=== PATIENT | female | born 1990 | race Caucasian/White ===

== ENCOUNTER 2017-04-24 08:00 | Outpatient (CLI) | payer OTHER | END 2017-04-24 08:01 | disposition home or self-care (01) | LOC: LAB.R 08:00 | PROVIDERS: ATTEND Nurse Practitioner Obstetrics & Gynecology | DX: Z36 Encounter for antenatal screening of mother (principal) | CPT/HCPCS: 87081 ==

== ENCOUNTER 2017-05-24 17:44 | Outpatient (CLI) | payer OTHER ==
[2017-05-24 18:23] VITALS: BP 137/88
== END 2017-05-24 18:37 | disposition home or self-care (01) ==
LOC: WFO 17:44 → FBP 17:45 → WFO 18:37
PROVIDERS: ATTEND Nurse Practitioner Obstetrics & Gynecology
DX: O99.89 Other specified diseases and conditions complicating pregnancy, childbirth and the puerperium (principal); N89.8 Other specified noninflammatory disorders of vagina; Z3A.40 40 weeks gestation of pregnancy
CPT/HCPCS: 99213

== ENCOUNTER 2017-05-28 03:59 | Inpatient (IN) | payer OTHER ==
[2017-05-28] MEDS ORDERED: MINERAL OIL LIGHT 10 ML MC ONE (04:13)
[2017-05-28] MEDS ORDERED: LIDOCAINE 1% 50 ML MDV ONE (04:13)
[2017-05-28] MEDS ORDERED: LACTATED RINGERS 1,000 ML IV ONE (04:13)
[2017-05-28] MEDS ORDERED: SODIUM CHLORIDE FLUSH 0.9% 10 ML SYRINGE IVP ONE (04:14)
[2017-05-28] MEDS ORDERED: OXYTOCIN/LACTATED RINGERS 250 ML IV ONE ×2 (04:14→05:53)
[2017-05-28] MEDS ORDERED: SODIUM CHLORIDE FLUSH 0.9% 10 ML SYRINGE IVP PRN (04:43)
[2017-05-28] MEDS ORDERED: LACTATED RINGERS 1,000 ML IV SCH (05:00)
--- NOTE | 2017-05-28 05:00 | HISTORY & PHYSICAL EXAMINATION ---
Admit History - Instructions [place]/Slash: -Left hand click circles element as positive or present. -Right hand click slashes element as negative or not present. - Visit Reason Visit Reason: Contractions - : 2 Parity: 0 Premature: 0 Ectopic: 0 : 1 Care: positive: [facility] Risk/History: positive: None Complications This : positive: None Smoking Status: Never smoker - Mother's Labs Mother's Blood Type: positive: A Mother's RH: positive: Positive GBS: positive: Group B Step Negative Rubella Status: positive: Immune - Other Maternal History Other Maternal History: HPI: This 26yo @ 41.2wks gestation by L=8wk U/S presents with contractions. Upon evaluation she was noted to be 6/90/0 and vertex. She was admitted to L&D for management. She reports her BOW is intact. Dating Criteria: 1.) LMP 08/12/2016 2.) First ultrasound 10/07/2016 @ 8.2wks - agrees 3.) First exam 10/07/2016 @ 8.6wks -agrees 4.) Serial exams @ 29 - 41 wks -agree OB History: G1: Spontaneous at 4 weeks without complications G2: Current CLIENT SERVICES SPECIALIST History: Menarche 15, Menses 24-26 days; regular STD's none, CLIENT SERVICES SPECIALIST surgeries: none Abnormal paps and treatment: none, last pap 11/2016 WNL PMH: No significant PSHx: Appendectomy 2003 Social Hx: Never smoke, no ETOH or IVDA Family Hx: No significant Meds: PNV Allergies: NKA Early labs: 09/27/2016 Blood type A, Rh pos, antibody neg Hgb 14.4, Hct 12.9, PLT 239 Rubella: immune HIV: neg GC/CT neg 10/21/2016 Hep B: non-reacitve Varicella immune Genetic testing: Quad screen neg x 4 28 week labs: Hgb 12.5 Antibody: neg 1 hour GTT: 94 Tdap 03/17/2017 Influenza 08/12/2016 GBS: Neg Ultrasounds: 10/07/2016: @ 8.2wks c/w LMP 01/02/17: FAS Anterior placenta, no previa, ELIZABETH WNL, FAS WNL except suboptimal visualization of cardiac structures. 01/11/2017: - f/u heart WNL, ELIZABETH WNL Assessment: 26yo @ 41.2wks gestation by L=8.2wk U/S Active labor Desires natural labor Plan: Admit to L&D Encouraged position changes Anticipate spontaneous vaginal delivery Meds/Allgy - Home Medications Home Medications: Ambulatory Orders Medication Instructions Recorded Confirmed No Known Home Medications [No 03/04/14 08/10/14 Known Home Medications] - Allergies Allergies/Adverse Reactions: Allergies Allergy/AdvReac Type Severity Reaction Status Date / Time No Known Drug Allergies Allergy Verified 02/24/14 13:50 Physical - Abdominal Exam Vital Signs: Temp Pulse Resp BP Pulse Ox 36.6 C 74 20 139/65 H 99 05/28/17 04:32 05/28/17 04:16 05/28/17 04:16 05/28/17 04:16 05/28/17 04:16
[2017-05-28 05:18] LABS: BASOPHILS # (AUTO) 0.1 10^3/uL (0.0-0.1); BASOPHILS % (AUTO) 0.6 %; EOSINOPHILS % (AUTO) 0.1 %; HCT - HEMATOCRIT 37.6 % (37.0-47.0); HGB - HEMOGLOBIN 12.9 g/dL (12.0-16.0); LYMPHOCYTES # (AUTO) 1.4 10^3/uL (1.5-3.5); LYMPHOCYTES % (AUTO) 7.8 %; MEAN CORPUSCULAR HEMOGLOBIN 30.9 pg (27.0-31.0); MEAN CORPUSCULAR HGB CONC 34.3 g/dL (32.0-36.0); MEAN CORPUSCULAR VOLUME 90.1 fL (81.0-99.0); MEAN PLATELET VOLUME 9.9 fL (7.9-10.8); MONOCYTES # (AUTO) 0.7 10^3/uL (0.0-1.0); MONOCYTES % (AUTO) 3.8 %; NEUTROPHILS # (AUTO) 16.1 10^3/uL (1.5-6.6); NEUTROPHILS % (AUTO) 87.7 %; RED BLOOD COUNT 4.18 10^6/uL (4.20-5.40); RED CELL DISTRIBUTION WIDTH 13.2 % (12.0-15.0); UNCORRECTED WHITE BLOOD COUNT 18.4 x10^3/uL; WHITE BLOOD COUNT 18.4 x10^3/uL (4.8-10.8)
[2017-05-28] MEDS ORDERED: WITCH HAZEL/GLYCERIN 1 EACH MED..PAD TOP PRN (05:53)
[2017-05-28] MEDS ORDERED: HYDROCORTISONE/PRAMOXINE 10 GM PR PRN (05:53)
[2017-05-28] MEDS ORDERED: SODIUM CHLORIDE FLUSH 0.9% 10 ML SYRINGE IVP SCH (06:00)
--- NOTE | 2017-05-28 06:01 | DELIVERY NOTE ---
Delivery Note - Labor Labor: positive: Spontaneous - Delivery Method Delivery Method: positive: Spontaneous vaginal delivery - Presentation Presentation: positive: Vertex, MITCHELL - left occiput anterior - Nuchal Cord Nuchal Cord: positive: None - Amniotic Fluid Description Amniotic Fluid Description: positive: Clear - Episiotomy Type Episiotomy Type: positive: None - Laceration Laceration: positive: 1st degree - Suture Suture Type: positive: Vicryl Suture Size: positive: 3-0 - Delivery Outcome Delivery Outcome: positive: Livebirth - Bow: positive: Placed in direct skin contact with mother, Bulb syringe, Stimulated, Warmed, [place] used Bow sex: positive: Male - Cord Cord: positive: 3 vessels - Placenta Placenta: positive: Intact, Spontaneous - Estimated Blood Loss Estimated Blood Loss (in cc): 200 - Post Delivery Events Post Delivery Events: positive: No post delivery events - Delivery Comments (Free Text/Narrative) Delivery Comments (Free Text/Narrative): Labor: This 26yo @ 41.2wks gestation by L= 8wk U/S presented at 0400 on 05/28/2017 in active labor. Cervix was 6/90/0 and vertex. FHR pattern demonstrated Category II pattern with early and late decelerations during the second stage. Normal labor course. AROM occurred at 9cm and was noted to be a moderate amount of clear fluid. Normal SVB of a viable male named Francisco. 's were 8/9 at 1 and 5 min respectively at 0521 on 05/28/2017. The was placed on maternal abdomen, stimulated, dried, and placed skin to skin. The umbilical cord was allowed to stop pulsating after which time it was then doubly clamped and cut by FOB. Cord blood was obtained. Placenta delivered spontaneously and intact at 0527. 3VC. Pitocin was administered via IV for hemostasis. EBL 200mL. Uterine fundus firm and there is no excessive bleeding. The perinuem, vagina, and cervix were inspected and found to have 1st degree midline laceration which was repaired using a 3-[address]-1 needle in standard fashion under sterile conditions. Vaginal repair following exam was done and tissues were well approximated. initiated. Family bonding well. Both mother and baby were left in stable condition.
[2017-05-28] MEDS: IBUPROFEN 800 MG TABLET PO SCH ×3 (07:03→18:09)
[2017-05-28] MEDS: ACETAMINOPHEN 500 MG TABLET PO SCH ×2 (07:11→15:45)
[2017-05-28] MEDS ORDERED: DOCUSATE SODIUM 100 MG CAPSULE PO ONE (12:19)
[2017-05-28] MEDS: DOCUSATE SODIUM 100 MG CAPSULE PO SCH ×2 (12:21→20:53)
[2017-05-29] MEDS: IBUPROFEN 800 MG TABLET PO SCH ×4 (00:01→18:11)
[2017-05-29] MEDS: ACETAMINOPHEN 500 MG TABLET PO SCH ×4 (00:01→22:01)
--- NOTE | 2017-05-29 07:48 | PROVIDER PROGRESS NOTE ---
Subjective - Subjective Subjective: 05/29/2017, 0745, PPD#1 S: Bonding well with baby. improved. Nipples are sore and red but baby mom has a lot of colostrum and baby has been soaking diapers and starting to have transitional stools. Worked closely with Karin yesterday and Cammy last night on getting a good latch. Bleeding decreased and pt states it is like a light menstrual cycle. Perineum sore but pain well controlled with ibuprofen. O: Heart RRR w/o M/G/R, lungs CTAB. Abdomen soft and non-tender with fundus firm at U-1. Bilateral LE's no edema. A: 26yo -->P1 PPD#1 s/p TSVB of viable male at 41.2wks gestation 1st degree laceration P: Continue routine PP care and meds. Plan for discharge home tomorrow. Objective - Vital Signs/Intake & Output Vital Signs: Vital Signs x48h Temp Pulse Resp BP Pulse Ox 05/29/17 03:45 36.6 C 76 16 109/65 100 05/29/17 00:00 36.8 C 87 16 119/71 100 Intake & Output: Intake & Output 05/26/17 05/27/17 05/28/17 05/29/17 23:59 23:59 23:59 23:59 Output Total 300 Balance -300 - Lab Results Fish Bones: 05/28/17 04:40
[2017-05-29] MEDS: DOCUSATE SODIUM 100 MG CAPSULE PO SCH ×2 (08:58→22:00)
[2017-05-30] MEDS: IBUPROFEN 800 MG TABLET PO SCH ×2 (01:56→09:18)
[2017-05-30] MEDS: ACETAMINOPHEN 500 MG TABLET PO SCH (06:12)
[2017-05-30 07:47] VITALS: BP 117/66
--- NOTE | 2017-05-30 08:35 | Discharge Plan ---
Discharge Plan Disposition: Home, Self Care Condition: Good Diet: Regular Activity Restrictions: No Restrictions Shower Restrictions: No Driving Restrictions: No Weight Bearing: Full Weight Additional Instructions or Follow Up instructions: S: Bonding well with baby. without difficulty. Continues to have sore nipples but reports and improvement in the discomfort. Planning to use coconut oil at home and has been rubbing breast milk on her nipples as well. Bleeding is decreased and is light. Perineum is sore but her pain is well controlled with ibuprofen. O: Heart RRR w/o M/G/R, lungs CTAB, abdomen soft and nontender with fundus firm at U-2. Perineum intact. Bilateral LE's no edema. A: 26yo -->P1 PPD#2 s/p TSVB of viable male infant P: Discharge home today on PP day #2. Reviewed pp self care and warning signs. 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 Baby has f/u appt with [facility] pediatricians on . Rx send to preferred pharmacy for ibuprofen 800mg 1 tab PO q 8 hrs PRN pain #60 with 1 refill, and colace 100mg sig 1 tab PO PRN constipation #60 with 1 refill. Pt verbalized understanding and agrees to above plan. Denies further questions or concerns today. Return in 2 and 6 weeks to see Noe Carter CNM, or sooner PRN. No Smoking: If you smoke, Please STOP! Call for help. Follow-up with: Lucila Sanchez CNM, RAUL [Provider Admit Priv/Credential] -
[2017-05-30] MEDS: DOCUSATE SODIUM 100 MG CAPSULE PO SCH (09:18)
--- NOTE | 2017-05-30 10:12 | Labor Flowsheet ---
Labor Flowsheet Datetime Report Generated by CPN: 05/30/2017 10:12 Datetime: 05/30/2017 07:36 VITAL SIGNS NBP Sys/Yamileth/Mean (mmHg): 117 : 66 : 78 Pulse: 80 Datetime: 05/29/2017 00:00 Temperature (F): 93.7 Temperature (C): 34.3 Temperature (C): 34.3 Datetime: 05/28/2017 05:59 SpO2 (%): 100 Datetime: 05/28/2017 05:15 UTERINE ACTIVITY Monitor Mode: External Frequency (min): 1-3 Quality: Strong Duration (sec): 60-120 Pattern: Normal: <= 5 Contractions in 10 Minutes Resting Tone (Palpate): Relaxed ASSESSMENT A Monitor Mode: External US FHR Baseline Rate : 120 Variability: Moderate 6-25 bpm Accelerations: 15X15 Decelerations: Variable Category: Category II Oxygen Amount (LPM): 10 Oxygen Method: Non-Rebreather Datetime: 05/28/2017 05:12 Actions for Decelerations: Oxygen Applied PATIENT CARE IV/Blood Work: IV Bolus Started Datetime: 05/28/2017 05:07 TEACHING Instructional Method: Verbal Labor/Induction: Pushing Methods STAGE 2 Pushing: Coached on Pushing; Urge to Push; Involuntary Pushing Pushing Position: Pushing with Contractions; Pushing Lithotomy Pushing Progress: Descent with Pushing; Perineal Bulging Datetime: 05/28/2017 05:01 Patient Position/Activity: Left Tilt Datetime: 05/28/2017 05:00 PAIN Pain Scale: 10 Pain Presence: Intermittent Pain Type: Cramping; Contraction Pain Relief Measures: Comfort Measures Pain Coping: Declines Medication or Epidural VAGINAL EXAM Dilatation (cm): 9.0 Effacement (%): 100 Station: 1 Exam by: Braulio, RN Datetime: 05/28/2017 04:56 Membrane Status: Ruptured Membranes Rupture Method: Spontaneous Amniotic Fluid Color: Clear Amniotic Fluid Amount: Moderate Datetime: 05/28/2017 04:15 Pain Location: Abdomen Datetime: 05/28/2017 04:10 COMMUNICATION Communication: Provider at Bedside Provider Notified (Name): Rupali Sanchez CNM
--- NOTE | 2017-05-30 10:38 | DISCHARGE SUMMARY ---
DATE OF ADMISSION: 05/28/2017 DATE OF DISCHARGE: 05/30/2017 DIAGNOSIS ON ADMISSION: 1. A 26-year-old G2, P0-0-1-0 with a 41.2 week intrauterine . 2. Active labor. DIAGNOSES ON DISCHARGE: 1. A 26-year-old G2, P1-0-1-1 status post spontaneous vaginal delivery on 05/28/2017. 2. Normal recovery. BRIEF HISTORY: She is a patient of [facility] who presented on 05/28/2017 with compl aints of contractions. She was found to be in active labor. Her cervix was 6, 90%, 0 station and vert ex. She was admitted to labor and delivery for management. She spontaneously delivered a viable male infant named Francisco on 05/28/2017 at 0521. Apgars were 8 and 9 at one and 5 minutes, respectively. He weighed 8 pounds 0 ounces. Estimated blood loss was 200 mL. She was found to have a first-degree m idline laceration which was repaired under sterile conditions in a standard fashion. She has been doing well in her course. She is ambulating and tolerating a regular diet. Alexandrea webb is urinating without difficulty, and her lochia is normal. Her pain is well controlled with oral me dications. She will be discharged home today on day #2 with prescriptions for ibuprofen an d Colace. She [facility] [place] in 2 weeks. She has been given precautions to call if she has any worsening fevers, chills, abdominal pain, increased bleedin g or foul-smelling vaginal lochia. JOB #: [id number] EXT JOB #:[id number]
== END 2017-05-30 10:00 | disposition home or self-care (01) | DRG 775 ==
LOC: FBP 03:59
PROVIDERS: ADMIT Nurse Practitioner Obstetrics & Gynecology; ATTEND Nurse Practitioner Obstetrics & Gynecology
PROC: 10E0XZZ Delivery of Products of Conception, External Approach (ICD-10-PCS; principal; 2017-05-28)
PROC: 0HQ9XZZ Repair Perineum Skin, External Approach (ICD-10-PCS; 2017-05-28)
PROC: 10907ZC Drainage of Amniotic Fluid, Therapeutic from Products of Conception, Via Natural or Artificial Opening (ICD-10-PCS; 2017-05-28)
DX: O48.0 Post-term pregnancy (principal); O70.0 First degree perineal laceration during delivery; Z3A.41 41 weeks gestation of pregnancy; Z37.0 Single live birth
CPT/HCPCS: 85025; 99213

== ENCOUNTER 2018-02-24 08:38 | Outpatient (CLI) | payer OTHER ==
--- NOTE | 2018-02-25 22:03 | MRI Report ---
EXAM: LEFT MIDFOOT AND HINDFOOT MRI WITHOUT CONTRAST EXAM DATE: 02/24/2018 09:35 AM. CLINICAL HISTORY: Reinjured left foot on 02/09/2018. Previous partial-thickness plantar fascial tear. COMPARISON: Left hindfoot MRI from 07/04/2016. TECHNIQUE: Multiplanar, multisequence T1-weighted and fluid-sensitive sequences of the midfoot and hi ndfoot without contrast. Other: None. FINDINGS: Bones and articular cartilage: Small plantar calcaneal enthesophyte. No acute fracture or bone lesion s. Articular cartilage is within normal limits. Ligaments: The visualized intertarsal, intermetatarsal, and tarsometatarsal ligaments are intact. Thi s includes the Lisfranc ligament. The visualized collateral ligaments are intact. The tibiofibular, t alofibular, calcaneofibular, deltoid, and spring ligaments are intact. Tendons: The extensor, peroneal, flexor, and Achilles tendons are intact. Musculature: No edema or fatty atrophy. Other: No effusions. The sinus tarsi and tarsal tunnel are unremarkable. There is a tiny 6 x 4 x 1 mm low-grade partial tear at the proximal end of the plantar fascia. No plantar fascial thickening. Mil d subcutaneous edema at the plantar aspect of the heel. IMPRESSION: 1. Tiny 4 x 6 x 1 mm low-grade partial tear at the proximal end of the plantar fascia. Mild subcutane ous edema at the plantar aspect of the heel. Small plantar calcaneal enthesophyte. RADIA MUSCULOSKELETAL RADIOLOGY SECTION Referring Provider Line: [phone] SITE ID: [id number]
== END 2018-02-24 08:39 | disposition home or self-care (01) ==
LOC: DI 08:38
PROVIDERS: ATTEND Podiatrist
DX: S96.812A Strain of other specified muscles and tendons at ankle and foot level, left foot, initial encounter (principal); M25.775 Osteophyte, left foot

== ENCOUNTER 2023-11-30 07:54 | Outpatient (CLI) | payer OTHER ==
--- NOTE | 2023-11-30 14:54 | Ultrasound Report ---
PROCEDURE: OB Anatomy Scan INDICATIONS: SUPERVISION OF OUTSIDE/PRIOR DATING DATA: Last menstrual period (LMP): 07/06/2023. LMP-based estimated date of delivery (KENDRA): 04/11/2024. First dating scan (date and location): 11/30/2023. Estimated date of delivery (KENDRA) from first dating scan: 04/11/2024. The below data below was generated using the clinical KENDRA of 04/11/2024 TECHNIQUE: Ultrasound of the gravid uterus was performed and recorded. COMPARISON: None. FINDINGS: General: A single live intrauterine gestation is present. Presentation: Variable Placenta: Placental position is posterior without previa. Amniotic fluid index: 11.7 cm, 18.6 percentile for gestational age. heart rate: 150 beats per minute. Maternal cervical canal: 4.1 cm long; normal length is 2.5 cm or more. biometrics: Biparietal diameter: 4. Centimeter, 20 week 5 day, 35 percentile Head circumference: 11.8 cm, 20 week 3 day, 17.9 percentile Abdominal circumference: 16.2 cm, 21 week 2 day, 32.7 percentile Femur length: 3.8 cm, 22 week 2 day, 44.2 percentile Estimated gestational age by working dates: 21 week 0 day Composite gestational age by current ultrasound: 21 week 0 day Estimated weight and percentile: 433 g, 74.9 percentile Measurement variability in biometric dating: +/- 10 days from 12-20 weeks gestation, +/- 2 weeks from 20-30 weeks gestation, +/- 3 weeks at 30 weeks gestation or more. Anatomic survey: Neuro: Ventricles are non-dilated at less than 10 mm. Cisterna magna is normal at 3-11 mm. Cerebel lum is normal in size and morphology. Nuchal skin fold: Normal at less than 6 mm between 14-20 weeks gestational age. Face: Nose and lips, facial profile are normal. Spine: No evidence for spina bifida. Heart: 4-chambered heart is present, with normal ventricular outflow tracts. Diaphragm: Diaphragm is intact. Stomach: Left-sided stomach is present. Kidneys: No hydronephrosis. Normal is less than 5 mm in 2nd trimester, less than 7 mm in 3rd trimester. Cord: 3-vessel cord has orthotopic insertion. Bladder: Normal in size. Extremities: All 4 extremities identified. Other: Not applicable. IMPRESSION: Single live intrauterine consistent with 21 week 0 day gestation by current ultrasound Unremarkable anatomic survey Reviewed by: Juancarlos Gonsalez MD on 11/30/2023 1:53 PM [facility] Approved by: Juancarlos Gonsalez MD on 11/30/2023 1:53 PM [facility] Station ID: [id number]
== END 2023-11-30 07:55 | disposition home or self-care (01) ==
LOC: DI 07:54
PROVIDERS: ATTEND Nurse Practitioner Obstetrics & Gynecology
DX: Z36.89 Encounter for other specified antenatal screening (principal); Z34.02 Encounter for supervision of normal first pregnancy, second trimester

== ENCOUNTER 2024-01-15 14:36 | Outpatient (CLI) | payer OTHER ==
[2024-01-15 15:57] LABS: HCT - HEMATOCRIT 37.1 % (37.0-47.0); MEAN CORPUSCULAR HEMOGLOBIN 29.9 pg (27.0-31.0); MEAN CORPUSCULAR HGB CONC 32.3 g/dL (32.0-36.0); MEAN CORPUSCULAR VOLUME 92.3 fL (81.0-99.0); MEAN PLATELET VOLUME 10.4 fL (7.9-10.8); RED BLOOD COUNT 4.02 10^6/uL (4.20-5.40); RED CELL DISTRIBUTION WIDTH 12.8 % (12.0-15.0); WHITE BLOOD COUNT 10.8 x10^3/uL (4.8-10.8)
[2024-01-16 03:10] LABS: HBsAG SCREEN Negative (Negative)
== END 2024-01-15 14:37 | disposition home or self-care (01) ==
LOC: LAB 14:36
PROVIDERS: ATTEND Nurse Practitioner Obstetrics & Gynecology
DX: Z36.9 Encounter for antenatal screening, unspecified (principal)
CPT/HCPCS: 36415; 82950; 85027; 86803; 87340; 87517; 87522

== ENCOUNTER 2024-02-05 13:16 | Outpatient (CLI) | payer OTHER ==
[2024-02-05 13:48] VITALS: BP 116/61
[2024-02-05 13:53] LABS: BASOPHILS % (AUTO) 0.2 %; EOSINOPHILS # (AUTO) 0.1 10^3/uL (0.0-0.7); EOSINOPHILS % (AUTO) 0.8 %; HCT - HEMATOCRIT 35.7 % (37.0-47.0); HGB - HEMOGLOBIN 11.6 g/dL (12.0-16.0); LYMPHOCYTES # (AUTO) 1.7 10^3/uL (1.5-3.5); LYMPHOCYTES % (AUTO) 14.1 %; MEAN CORPUSCULAR HEMOGLOBIN 29.7 pg (27.0-31.0); MEAN CORPUSCULAR HGB CONC 32.5 g/dL (32.0-36.0); MEAN CORPUSCULAR VOLUME 91.3 fL (81.0-99.0); MEAN PLATELET VOLUME 10.5 fL (7.9-10.8); MONOCYTES # (AUTO) 0.7 10^3/uL (0.0-1.0); NEUTROPHILS # (AUTO) 9.3 10^3/uL (1.5-6.6); NEUTROPHILS % (AUTO) 78.1 %; PLT - PLATELET COUNT 189 10^3/uL (130-450); RED BLOOD COUNT 3.91 10^6/uL (4.20-5.40); RED CELL DISTRIBUTION WIDTH 13.2 % (12.0-15.0); WHITE BLOOD COUNT 11.9 x10^3/uL (4.8-10.8)
[2024-02-05 14:10] LABS: CREATININE,URINE 28.5 mg/dL; PROTEIN/CREATININE RATIO,URINE 0.1 (<=0.2)
[2024-02-05 14:32] LABS: ALBUMIN 3.6 g/dL (3.2-5.5); ALBUMIN/GLOBULIN RATIO 1.2 (1.0-2.2); BILIRUBIN,TOTAL 0.3 mg/dL (0.2-1.0); CALCIUM 9.4 mg/dL (8.5-10.3); CREATININE 0.8 mg/dL (0.6-1.3); POTASSIUM 3.9 mmol/L (3.5-4.5); TOTAL PROTEIN 6.5 g/dL (6.4-8.9)
--- NOTE | 2024-02-07 11:27 | PROVIDER PROGRESS NOTE ---
- HPI Chief Complaint: Hypertension/PIH Current : Current EDU 04/11/24 Gestation 30 Weeks and 4 Days 4 Para 2 Vital Signs Temperature 36.9 C 02/05/24 13:29 Heart Rate 90 02/05/24 13:29 Respiratory Rate 16 02/05/24 13:29 Blood Pressure 116/61 02/05/24 13:29 Temperature 36.9 C 02/05/24 13:29 Heart Rate 90 02/05/24 13:29 Respiratory Rate 16 02/05/24 13:29 Blood Pressure 116/61 02/05/24 13:29 O2 Saturation If not protocol: Oxygen Flow, liters/minute - Procedures OB Procedure Performed: NST NST Procedure: NST Procedure Start Date 02/05/24 Start Time 14:00 Stop Time 14:20 Vibroacoustic Stimulation Used No Patient States Movement Yes - Plan Plan: Neetu is a 33yo @ 30.4wks gestation who presents to [facility] with c/o having elevated blood pressures readings on multiple occasions on her home blood pressure cuff. She reports it is an arm cuff that her regularly uses to track his blood pressures. She states what prompted her to evaluate her blood pressure was feelings of dizziness and light headedness that began yesterday. She felt ringing in her ears and like she may faint with the first occurrence happening yesterday. She proceeded to sit down and her systolic blood pressure was 137. She is unable to recall was the diastolic reading was however she does not believe it was above 90. She states this afternoon she felt similarly and she took her blood pressure again and noted her systolic reading was 152. She is again unable to recall what her diastolic reading was. She reports lingering headache and right shoulder pain that started Monday evening that she related to physical activity. She attributed the headache to the radiating shoulder pain. She denies visual disturbances, RUQ or epigastric pain. She denies vaginal bleeding, leakage of fluid or contractions. She reports +FM. She does experience intermittent swelling in her feet bilaterally but does not feel she is any more swollen today than she normally is. She has no history of hypertensive disorders in her previous pregnancies and her blood pressure throughout her current have been within normal limits. She reports she is adequately hydrated and well nourished. She denies urinary symptoms. Reports regular bowel movements. She reports seasonal allergies and has not been taking anything regularly for management. She denies exposure to anyone with recent illness. NST reactive. FHR baseline 150s, moderate variability, + accels, no decels Intermittent contractions appreciated via tocometry that pt is unable to feel. CBC and CMP within normal limits. Urine protein/creatinine ratio 0.1 Serial blood pressure monitoring within normal limits and patient does not have any elevated blood pressure during her visit today. Heart RRR w/o M/G/R, lungs CTAB, abdomen gravid, soft, nontender. Bilateral LE's no edema. Assessment: Dizziness in Headache Seasonal allergies Plan: Pt released home with precautions. Recommended daily allergy medication and reviewed safe options in . Reviewed Pre-E warning s/sx and when to present. Pt has emergency contact information. Encouraged her to bring her home BP cuff with her to her next routine visit to ensure accuracy. Pt feels reassured and was released home with precautions. She verbalized understanding and agrees to above plan. She denies further questions or concerns at this time.
== END 2024-02-05 14:40 | disposition home or self-care (01) ==
LOC: WFO 13:16 → FBP 13:27 → WFO 14:40
PROVIDERS: ATTEND Nurse Practitioner Obstetrics & Gynecology
DX: O99.891 Other specified diseases and conditions complicating pregnancy (principal); R42 Dizziness and giddiness; R51.9 Headache, unspecified; O99.513 Diseases of the respiratory system complicating pregnancy, third trimester; J30.2 Other seasonal allergic rhinitis; Z3A.30 30 weeks gestation of pregnancy
CPT/HCPCS: 36415; 59025; 80053; 82570; 84156; 85025; 99213; 99214

== ENCOUNTER 2024-04-05 08:48 | Inpatient (IN) | payer OTHER ==
[2024-04-05] MEDS ORDERED: TERBUTALINE 1 MG/ML VIAL SUBQ PRN (09:20)
[2024-04-05] MEDS ORDERED: SODIUM CHLORIDE FLUSH 0.9% 10 ML SYRINGE IVP PRN (09:20)
[2024-04-05] MEDS ORDERED: lidocaine 1% 20 ML MDV ID PRN (09:20)
[2024-04-05] MEDS ORDERED: CARBOPROST TROMETHAMINE 250 MCG/ML VIAL IM PRN (09:20)
[2024-04-05] MEDS ORDERED: OXYTOCIN/SODIUM CHLORIDE 500 ML IV PRN (09:20)
[2024-04-05] MEDS ORDERED: METHYLERGONOVINE 0.2 MG/ML VIAL IM PRN (09:20)
[2024-04-05] MEDS ORDERED: OXYTOCIN 10 UNIT/ML VIAL IM PRN (09:20)
[2024-04-05] MEDS ORDERED: miSOPROStoL 200 MCG TABLET PR PRN (09:20)
[2024-04-05] MEDS ORDERED: TRANEXAMIC ACID IN NACL 1,000 MG/100 ML BAG IV PRN (09:20)
--- NOTE | 2024-04-05 09:20 | HISTORY & PHYSICAL EXAMINATION ---
Admit History - Visit Reason Visit Reason: Membranes rupture - : 5 Parity: 3 Premature: 0 Ectopic: 0 : 1 Care: positive: [facility] Risk/History: positive: None Complications This : positive: None Smoking Status: Never smoker - Mother's Labs Mother's Blood Type: positive: A Mother's RH: positive: Positive GBS: positive: Group B Strep Positive Rubella Status: positive: Immune - HPI Diagnosis/Indication for NST: Other - NST Procedure NST Procedure Start Time 14:00 Stop Time 14:20 Meds/Allgy - Home Medications Home Medications: Ambulatory Orders Medication Instructions Recorded Confirmed No Known Home Medications 03/04/14 08/10/14 - Allergies Allergies/Adverse Reactions: Allergies Allergy/AdvReac Type Severity Reaction Status Date / Time No Known Drug Allergies Allergy Verified 02/24/14 13:50 Review of Systems - Constitutional Constitutional: denies: Fatigue, Fever, Chills, Malaise - Eyes Eyes: denies: Pain, Blurred vision - Cardiovascular Cariovascular: denies: Irregular heart rate, Palpitations, Chest pain, Edema - Respiratory Respiratory: denies: Cough, Wheezing, SOB at rest - Gastrointestinal Gastrointestinal: denies: Constipation, Diarrhea, Nausea, Vomiting - Genitourinary Genitourinary: denies: Dysuria - Integumentary Integumentary: denies: Rash, Pruritis - Neurological Neurological: denies: Headache - Psychiatric Psychiatric: denies: Depression, Anxiety - Hematologic/Lymphatic Hematologic/Lymphatic: denies: Anemia - All Other Systems All Other Systems: reports: Reviewed and negative Physical - Abdominal Exam Contraction Frequency (min/apart): intermittent Contraction Intensity: positive: Mild Uterine Resting Tone: positive: Soft - Monitoring Heart Rate Baseline: 140s Strip Review: positive: Category I - Presentation Presentation: positive: Vertex - Vaginal Exam Membranes: positive: Membranes ruptured - Speculum Exam Speculum Exam Performed: positive: Yes Findings: positive: Gross leak, Nitrazine Plan for Labor - Plan For Labor I expect patient to be DC'd or transferred within 96 hours.: Yes Plan for Labor: HPI: This 33yo G5:0313 @ 39.1wks gestation by LMP c/w 8.5wk U/S presents to [facility] with c/o vaginal leakage of fluid that occurred at approximately 0800 this morning. She reports the fluid was clear and she was initially unsure if she was involuntarily urinating or if her water was broken. She presented for evaluation and was noted to have grossly ruptured membranes on sterile speculum examination with positive nitrizine. SVE was deferred. She is noted to be GBS positive and IV antibiotics will be started per protocol prior to SVE secondary to her absence of contractions at present time. She denies vaginal bleeding and reports +FM. She is supported by her Laura today. [facility] the duration of her which has remained uncomplicated. She will be admitted to [facility] for expectant management. Dating criteria: LMP: 07/06/2023-->04/11/2024 Initial U/S @ 8.5wks c/w LMP dating Serial exams - agree OB Hx: G1: SAB G2: 05/28/2017, @ 41.5 wks, 5hr labor, 20 min second stage, 8lb5oz Male, Francisco. [facility] G3: 11/17/2020, @ 38.5wks, 7hr labor, 30 min second stage, 7lb 30z Male, Juan. Other Hospital G4: 08/14/2022, @ 41.0wks, 5hr labor, 20 min second stage, 8lb 0oz Male, Felipe. 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 Stopped drinking alcohol due to . Denies current use of tobacco, marijuana or other recreational drugs. Reports that she is safe in current relationship. Family Hx: Denies family history of congenital anomalies, Cystic Fibrosis or chromosomal abnormalities. Diabetes - Paternal grandfather. Allergies: NKDA Medications: PNV, Probiotics course: A positive, antibody negative Rubella immune, Varicella immune HIV DECLINED, RPR non-reactive Hep B negative, Hep C Non-Reactive N. gonorrhea Declined; Chlamydia Declined Initial U/S & 8.5wks c/w LMP dating Genetic screening - declined FAS WNL. Posterior placenta, no previa. Size c/w dating (EFW 74.9%tile). ELIZABETH WNL. 3VC. Glucola - 112 Tdap - declined GBS POSITIVE Physical Exam: Normocephalic, atraumatic Heart RRR w/o M/G/R Lungs CTAB Abdomen gravid, soft, nontender EFW 3800g FHR baseline 140s, moderate variability, + accels, no decels Contractions palpate mild intermittently with soft resting tone SVE deferred Sterile speculum exam reveals grossly ruptured membranes Nitrizine positive Bilateral LE's trace edema Mood is good. Assessment: 33yo @ 39.1wks gestation by LMP c/w 8.5wk U/S PROM GBS positive FHR Category I Plan: Admit to [facility] for expectant management. Intermittent heart rate auscultation. Initiate ampicillin for GBS prophylaxis per protocol. Encouraged ambulation and position changes. Anticipating NSVB.
[2024-04-05] MEDS ORDERED: SODIUM CHLORIDE FLUSH 0.9% 10 ML SYRINGE IVP SCH (10:00)
[2024-04-05] MEDS: AMPICILLIN 2 GM in SODIUM CHLORIDE 0.9% MINIBAG 100 ML IV ONE (10:58)
[2024-04-05] MEDS: LACTATED RINGERS 1,000 ML IV PRN (10:59)
[2024-04-05 11:16] LABS: BASOPHILS % (AUTO) 0.1 %; EOSINOPHILS # (AUTO) 0.1 10^3/uL (0.0-0.7); EOSINOPHILS % (AUTO) 0.7 %; HCT - HEMATOCRIT 36.3 % (37.0-47.0); HGB - HEMOGLOBIN 11.9 g/dL (12.0-16.0); LYMPHOCYTES # (AUTO) 1.3 10^3/uL (1.5-3.5); LYMPHOCYTES % (AUTO) 13.6 %; MEAN CORPUSCULAR HEMOGLOBIN 29.5 pg (27.0-31.0); MEAN CORPUSCULAR HGB CONC 32.8 g/dL (32.0-36.0); MEAN CORPUSCULAR VOLUME 89.9 fL (81.0-99.0); MEAN PLATELET VOLUME 10.9 fL (7.9-10.8); MONOCYTES # (AUTO) 0.5 10^3/uL (0.0-1.0); MONOCYTES % (AUTO) 5.1 %; NEUTROPHILS # (AUTO) 7.9 10^3/uL (1.5-6.6); PLT - PLATELET COUNT 208 10^3/uL (130-450); RED BLOOD COUNT 4.04 10^6/uL (4.20-5.40); RED CELL DISTRIBUTION WIDTH 14.1 % (12.0-15.0); WHITE BLOOD COUNT 9.8 x10^3/uL (4.8-10.8)
[2024-04-05] MEDS: AMPICILLIN 1 GM in SODIUM CHLORIDE 0.9% MINIBAG 100 ML IV SCH (14:53)
--- NOTE | 2024-04-05 17:16 | PHARMACY PROGRESS NOTE ---
- Best Possible Medication History Admit Date and Time: 04/05/24 0920 Processed by: Pharmacy Medications reviewed in ED?: No Medication History completed: No Secondary Source(s): Physician records, Insurance records As the person ultimately responsible for medication therapy, providers are able to order a medication from an existing home medication list in [facility] via the "Reconcile Routine" prior to Confirmation of that medication by application support engineer. Such practice is discouraged except when the physician, in their clinical judgment, deems that a medical need exists for a medication without regard to previous use.
--- NOTE | 2024-04-06 08:57 | PROVIDER PROGRESS NOTE ---
Labor Progress Note - Monitoring Monitor Mode: positive: External ultrasound Heart Rate Baseline: 130 Heart Rate Variability: positive: Moderate (6-25 bmp) Accelerations: positive: Present, 15x15 Strip Review: positive: Category I - Vaginal Exam Dilation (in cm): 4 Effacement (%): 80 Station: -2 Cervical Position: Posterior, Midposition - Labor Progress Note Labor Progress Note/Additional Text: S: SROM 24 hours ago without onset of labor. GBS positive, prophylaxis initiated. Deferred any augmentation with a preference for expectant management at that of admission and throughout the last 24 hours. She was able to rest through the night with q 4 hour NSTs (reactive). She had increased frequency and intensity of contractions around 0300 but they have since mostly stopped. Feeling overall physically comfortable. Very hesitant to initiate medication induction O: FHR baseline:130, + accelerations, no recurrent or significant decelerations. Overall reassuring tracing. Contractions intermittent, palpate mild, soft resting tone. SVE 4/80/-2, ruptured, clear. Unchanged SVE from yesterday. Afebrile A: This 33yo @ 39+2 wks gestation by LMP c/w 8.5wk U/S presents to [facility] with c/o vaginal leakage of fluid that occurred at approximately 0800 on 04/05/2024. Gross rupture confirmed by speculum exam and nitrazine. 24 hours since SROM. Now, prolonged rupture of membranes increased risk for hemorrhage, chorioamnionitis and distress with prolonged rupture of membranes FHR Category I GBS positive. P: Extended discussion related to increased risks of chorioamnionitis and distress with prolonged rupture of membranes. Continued hesitancy to initiate labor induction. Extended discussion re: reviewed risk vs benefit Initiate pitocin now for induction of labor to initiate at 1mu/min with titration per protocol. Continued GBS prophylaxis Type & Cross 2 units starting pitocin Will notify on-call physician of plan Anticipate . RAUL Yousif, Student Nurse Implementation Consultant Neetu had verbalized agreement to my participation in her care in my student midwifery role.
[2024-04-06] MEDS: OXYTOCIN/SODIUM CHLORIDE 500 ML IV SCH (09:20)
--- NOTE | 2024-04-06 09:26 | PROVIDER PROGRESS NOTE ---
Labor Progress Note - Uterine Monitoring Uterine Monitoring Mode: positive: None in use Contraction Frequency (min/apart): occasional, rare Contraction Intensity: positive: Mild Uterine Resting Tone: positive: Soft - Monitoring Monitor Mode: positive: Doppler/auscultation Heart Rate Baseline: 130s Decelerations: positive: None - Vaginal Exam Dilation (in cm): 3-4 Effacement (%): 80 Station: -2 Cervical Position: Posterior - Labor Progress Note Labor Progress Note/Additional Text: S: Continues to ambulate and has remained active throughout the day in attempt to initiate onset of labor without success. She has intermittently tried nipple stimulation, miles circuit, and lunges in the room. She has also gone for several walks throughout the hallway. She does not feel any contractions at this time. Her Laura is supportive at the bedside. O: SVE 3-4/80/-2, vertex. Grossly ruptured membranes with continued leakage of clear fluid. Afebrile FHR auscultates 130s, no contractions appreciated by patient or upon palpation A: 33yo @ 39.2wks gestation by LMP c/w 8.5wk U/S PROM GBS positive Reassuring heart tones P: Strongly encouraged initiation of pitocin for labor augmentation and pt declines. Reviewed risks of prolonged rupture of membranes including infection, distress, and hemorrhage. Pt continues to decline and requests expectant management x 24 hours. Will initiate q4hr NSTs throughout the night to promote rest per pt request. Continue ampicillin for GBS prophylaxis per protocol. Anticipate .
--- NOTE | 2024-04-06 11:21 | CONSULTATION NOTE ---
Surgery Consult - Admit Date Hospital Admission Date: 04/05/24 - Consult Date Consult Date: 04/06/24 Requesting Provider: RAUL Dias - Home Meds/Allergies Home Medications: Patient History Medication Instructions Recorded Confirmed Pnv No.95/Ferrous Fum/Folic AC 1 tab PO DAILY 04/05/24 04/05/24 [ Tablet] Allergies/Adverse Reactions: Allergies Allergy/AdvReac Type Severity Reaction Status Date / Time No Known Drug Allergies Allergy Verified 02/24/14 13:50 - Vital Signs Vital Signs: Last Vital Signs Temp 98.4 F 04/06/24 03:00 Pulse 80 04/06/24 03:00 Resp 18 04/06/24 03:00 BP 129/74 04/06/24 03:00 Pulse Ox 98 04/06/24 03:00 O2 Flow Rate Intake & Output: Intake & Output 04/03/24 04/04/24 04/05/24 04/06/24 23:59 23:59 23:59 23:59 Intake Total 527.083 201.667 Balance 527.083 201.667 - Lab Results Result Diagrams: 04/05/24 10:50
--- NOTE | 2024-04-06 13:18 | PROVIDER PROGRESS NOTE ---
Labor Progress Note - Uterine Monitoring Uterine Monitoring Mode: positive: External toco Contraction Frequency (min/apart): rare Contraction Intensity: positive: Mild Uterine Resting Tone: positive: Soft - Monitoring Monitor Mode: positive: External ultrasound Heart Rate Baseline: 130 Heart Rate Variability: positive: Moderate (6-25 bmp) Accelerations: positive: Present, 15x15 Decelerations: positive: None Strip Review: positive: Category I - Labor Progress Note Labor Progress Note/Additional Text: Despite strong repeated strong recommendation to titrate pitocin per protocol to initiate contractions she continues to decline increase in pitocin. She has been repeatedly educated by both myself, as well as the corporate staff accountant about the risk of prolonged rupture of membranes to both herself and to her baby.
--- NOTE | 2024-04-06 14:17 | PROVIDER PROGRESS NOTE ---
Labor Progress Note - Uterine Monitoring Uterine Monitoring Mode: positive: External toco Contraction Frequency (min/apart): 5-8 Contraction Intensity: positive: Mild Uterine Resting Tone: positive: Soft - Monitoring Monitor Mode: positive: External ultrasound Heart Rate Baseline: 130 Heart Rate Variability: positive: Moderate (6-25 bmp) Accelerations: positive: Present, 15x15 Decelerations: positive: None Strip Review: positive: Category I - Labor Progress Note Labor Progress Note/Additional Text: S: Feeling occasional contractions. Currently sitting up in bed and states she feels more discomfort with contractions when she is using the peanut ball or sitting on the ball. remains at bedside. Lengthy discussion again with patient regarding my concern for well being secondary to prolonged rupture of membranes and her continued refusal to increase pitocin despite my strong recommendations and repeated education discussions about risks vs benefits. She expressed concern about the cascade of intervention and we reviewed that my recommendation to initiate pitocin is to avoid a more significant intervention such as a delivery secondary to distress and she seemed receptive to this. She also expressed concerns for her ability to cope with contractions with pitocin despite her hx of 3 unmedicated deliveries and we reviewed this extensively. Following our conversation she states she accepts the recommendation to increase pitocin per protocol every 30 minutes until onset of active labor. Her remains at the bedside and was present and apparently listening throughout our conversation. O: FHR baseline 140s, moderate variability, + accels, no decels Contractions palpate mild every 5-8 minutes with soft resting tone SVE deferred Pitocin @ 3mU/mL PROM x 30hrs - febrile A: 33yo @ 39.3wks gestation Prolonged rupture of membranes GBS positive FHR Category I P: Continue ampicillin for GBS prophylaxis. Continue pitocin for augmentation of labor with titration per protocol.
[2024-04-06] MEDS ORDERED: HYDROCORTISONE 1% CREAM 28 GM TUBE PR PRN (18:03)
[2024-04-06] MEDS ORDERED: WITCH HAZEL/GLYCERIN 1 PAD TOP PRN (18:03)
--- NOTE | 2024-04-06 18:24 | DELIVERY NOTE ---
Delivery Note - Labor Labor: positive: Spontaneous - Delivery Method Delivery Method: positive: Spontaneous vaginal delivery - Presentation Presentation: positive: Vertex, [place]CHELL - left occiput anterior - Nuchal Cord Nuchal Cord: positive: Reduced - Anesthetic Anesthetic Type: - Amniotic Fluid Description Amniotic Fluid Description: positive: Clear - Laceration Laceration: positive: 1st degree, Perineal - Delivery Outcome Delivery Outcome: positive: Livebirth - [place]: positive: Placed in direct skin contact with mother, Bulb syringe, Stimulated, [place] used [place] sex: positive: Female - Cord Cord: positive: 3 vessels - Placenta Placenta: positive: Intact - Estimated Blood Loss Estimated Blood Loss (in cc): 50 - Post Delivery Events Post Delivery Events: positive: No post delivery events - Delivery Comments (Free Text/Narrative) Delivery Comments (Free Text/Narrative): This 33 -year-old, @ 39.2wks gestation by LMP c/w 8.5wk U/S. Cervix was 4/80 and Vertex presentation by quirino's. Prolonged, premature rom of membranes, SROM 04/05/2024 @0800. GBS positive, treated x7 doses of ampicillin. Desired expectant management x24 hours before initiated induction. Pitocin intated @0920 but patient agreed to only incremental increases until maximum infusion dose of 6mu/min reached at 15:15. FHR pattern demonstrated primarily category I with intermittent category II. Once onset of regular contractions, labor progressed quickly. Unmedicated labor course. She began pushing (presumed complete) at 1723. : Normal spontaneous vaginal delivery of a viable female on 04/06/2024 @ 1729. Nuchal cord x1, reduced. The was placed on maternal abdomen, stimulated, dried and placed skin to skin. Apgars 8 @ 1 min, and 9 @ 5 minutes. Pitocin administered via IV for hemostasis. The umbilical cord was allowed to stop pulsating at which time it was doubly clamped by delivering provider and cut by donor services team leader. 3VC. Cord blood was obtained. Fundal massage and gently cord traction applied for active management of the third stage, placenta delivered spontaneously and intact @ 1737 time. EBL 50ml. Placenta was WAS NOT sent to pathology. Declined active management of 3rd stage. Uterine massage was performed until uterus was deemed firm. Inspection of the perineum noted a first-degree midline laceration largely in t he area of previous scar tissue. hemostatic. Not repaired. Uterus again massaged and found to be firm. Needle and sponge counts were correct. Fourth stage: Uterine fundus firm and there is no excessive bleeding. Skin to skin initiated. Family bonding well. Both mother and baby are in stable condition. RAUL Yousif, Student Nurse Television Production Assistant
[2024-04-06] MEDS: IBUPROFEN 800 MG TABLET PO SCH (22:38)
[2024-04-06] MEDS: ACETAMINOPHEN 500 MG TABLET PO SCH (22:38)
[2024-04-06] MEDS: DOCUSATE SODIUM 100 MG CAPSULE PO SCH (22:38)
[2024-04-07 08:34] VITALS: O2SAT 97
--- NOTE | 2024-04-07 10:43 | Discharge Plan ---
Discharge Plan Problem Reviewed?: Yes Disposition: Home, Self Care Condition: Good Diet: Regular Activity Restrictions: No Restrictions Shower Restrictions: No Driving Restrictions: No Weight Bearing: Full Weight Instruction Topics: Vaginal, Breastfeed Holds, Self Care No Smoking: If you smoke, Please STOP! Call for help. Follow-up with: Lucila Sanchez CNM, RAUL [Provider Admit Priv/Credential] -
--- NOTE | 2024-04-07 10:48 | DISCHARGE SUMMARY ---
Discharge Summary Admit Date: 04/05/24 Discharge Date: 04/07/24 Discharging Provider: HOWARD Sanchez Primary Care Provider: HOWARD Sanchez Condition at Discharge: Good Discharge Disposition: 01 Home, Self Care - HPI History of Present Illness: Date of Admission 04/05/2024 Date of Discharge 04/07 Diagnosis on admission: 1. 33yo @ 39.1wks gestation by LMP c/w 8.5wk U/S 2. PROM 3. GBS positive 4. FHR Category I Diagnosis on Discharge 1. 33 yo s/p on 04/06/2024, viable female apgars 8&9, PPD #1 2. 3. 1st degree perineal laceration, hemostatic and unrepaired. Brief History: She is a patient of [facility] who presented on 04/05/2024 after SROM. GBS +, adequately treated (x7 total doses ampicillin). Desired expectant management x24 hours prior to initiating induction of labor (IOL). IOL began yesterday (04/06/2024) @ 0920 with pitocin. Once in active labor, she progressed quickly to complete and delivered a viable female infant the evening of 04/06/2024 @ 1724 with apgars of 8&9 @1&5 minutes respectively. Unmedicated (no pain analgesia) thorough labor and delivery course. EBL 50 ml. First degree perineal laceration, hemostatic, not repaired. She has been doing well in her course. She is ambulating and tolerating a regular diet. She is urinating without difficulty and her lochia is normal. Her pain is well controlled without narcotic management. She will be discharged to home today on PPD #1. Encouraged OTC IBU and tylenol prn, pain. She intends to follow up with [facility] in about 10 days by telehealth. She has been given precautions to call if she has any new or worsening sx such as fevers, chills, abdominal pain, increasing bleeding, or foul smelling vaginal lochia. RAUL Yousif, Student Nurse Bilingual Middle School Teacher - ALLERGIES Allergies/Adverse Reactions: Allergies Allergy/AdvReac Type Severity Reaction Status Date / Time No Known Drug Allergies Allergy Verified 02/24/14 13:50 - MEDICATIONS Home Medications: Ambulatory Orders Medication Instructions Recorded Confirmed Pnv No.95/Ferrous Fum/Folic AC 1 tab PO DAILY 04/05/24 04/05/24 [ Tablet] - PHYSICAL EXAM AT DISCHARGE General Appearance: positive: No acute distress Eyes Bilateral: positive: Normal inspection Neck: positive: Nml inspection Respiratory: positive: No respiratory distress Abdomen: positive: Non-tender Extremities: positive: Non-tender Neurologic/Psychiatric: positive: Oriented x3 - LABS Result Diagrams: 04/05/24 10:50 - QUALITY (Female Hip Fx Only) Was patient sent home on osteoporosis medication?: No
[2024-04-07 17:11] VITALS: BP 131/78
--- NOTE | 2024-04-07 19:16 | Labor Flowsheet ---
Labor Flowsheet Datetime Report Generated by CPN: 04/07/2024 19:16 Datetime: 04/07/2024 16:54 VITAL SIGNS NBP Sys/Yamileth/Mean (mmHg): 131 : 78 : 88 Pulse: 76 Datetime: 04/06/2024 19:30 Stage of : Datetime: 04/06/2024 18:00 Temperature (C): 36.7 Temperature Route: Oral Datetime: 04/06/2024 17:37 Patient Care Comments: placenta Datetime: 04/06/2024 17:23 STAGE 2 Stage 2 Comments: pt begins pushing Datetime: 04/06/2024 17:19 Communication Comments: A.Golden, CNM andf KRob, CHIEF DRAFTER return to bedside pt grunting with urge to push Datetime: 04/06/2024 17:17 VAGINAL EXAM Dilatation (cm): 8.0 Effacement (%): 100 Station: -2 Exam by: KRob, CHIEF DRAFTER Datetime: 04/06/2024 17:15 UTERINE ACTIVITY Monitor Mode: External Monitor Interventions for UA: [place] Adjusted Frequency (min): 2.5-3 Quality: Moderate Duration (sec): 60-70 Pattern: Normal: <= 5 Contractions in 10 Minutes Resting Tone (Palpate): Relaxed Pitocin Checklist: At Least 1 Acceleration of 15 bpm x 15 Seconds in 30 Minutes or Adequate Variabi lity; No More than 1 Late Deceleration Occurred in Past 30 Minutes; No More than 2 Variable Decelerat ions > 60 Seconds in Duration and decreasing >60 bpm in 30 minutes; No More than 5 Uterine Contractio ns in 10 Minutes for any 20 Minute Interval; Uterus Palpates Soft between Contractions ASSESSMENT A Monitor Mode: External US Monitor Interventions for FHR: Ultrasound Adjusted FHR Baseline Rate : 135 Variability: Moderate 6-25 bpm Accelerations: 15X15 Decelerations: None Category: Category I LaborFlag: Labor Datetime: 04/06/2024 17:12 PATIENT CARE Patient Position/Activity: Left Lateral Datetime: 04/06/2024 17:00 Contraction Comments: unable to determine d/t maternal position. A.Golden, CNM remains at bedside Comments: unabke to determine d/t maternal postion Datetime: 04/06/2024 16:00 Respirations: 14 SpO2 (%): 99 Datetime: 04/06/2024 15:37 Membranes Ruptured Date/Time: 04/05/2024 07:30 Membranes Rupture Method: Spontaneous Amniotic Fluid Color: Clear Amniotic Fluid Amount: Moderate Amniotic Fluid Odor: None Datetime: 04/06/2024 15:14 MEDICATIONS Pitocin (milliunits): Increased to @ 6 Datetime: 04/06/2024 15:11 I/O Interventions: Up to BR Datetime: 04/06/2024 15:09 Antibiotics: Ampicillin IV 1 Gm Datetime: 04/06/2024 11:37 Medication Comments: RN requests to increase pitocin to 3, pt states she is having cxtns and would like to stay @2 for now. RN educates pt on adequate cxtn pattern for cervical change. Pt and spouse v erbalize understanding. Datetime: 04/06/2024 10:01 PAIN Pain Scale: 0 Datetime: 04/06/2024 09:15 Strip Reviewed by: A.Yadi, RN COMMUNICATION Provider Notified (Name): A.Golden, CNM Datetime: 04/05/2024 15:15 Membrane Status: Ruptured
== END 2024-04-07 18:55 | disposition home or self-care (01) | DRG 807 ==
LOC: WFO 08:48 → FBP 08:49 → WFO 09:19 → FBP 09:20
PROVIDERS: ADMIT Nurse Practitioner Obstetrics & Gynecology; ATTEND Nurse Practitioner Obstetrics & Gynecology
PROC: 10E0XZZ Delivery of Products of Conception, External Approach (ICD-10-PCS; principal; 2024-04-06)
DX: O99.824 Streptococcus B carrier state complicating childbirth (principal); Z37.0 Single live birth; Z3A.39 39 weeks gestation of pregnancy; O70.0 First degree perineal laceration during delivery; O69.81X0 Labor and delivery complicated by cord around neck, without compression, not applicable or unspecified; O42.02 Full-term premature rupture of membranes, onset of labor within 24 hours of rupture
CPT/HCPCS: 59025; 59409; 85025; 86850; 86900; 86901; 86920; A9270; J7120; 84112; 99215